=== PATIENT | male | born 1965 | race Caucasian/White ===

== ENCOUNTER 2016-10-12 20:08 | Emergency (ER) | payer MEDICARE ==
[~2016-10-12] VITALS: Ht 175.3 cm; Wt 84.8 kg
[2016-10-12 20:12] VITALS: BP 104/65
== END 2016-10-12 20:53 | disposition home or self-care (01) ==
LOC: ED 20:47
DX: K08.89 Other specified disorders of teeth and supporting structures (principal)
CPT/HCPCS: 99283

== ENCOUNTER 2016-12-07 17:25 | Emergency (ER) | payer MEDICARE ==
[~2016-12-07] VITALS: Ht 175.3 cm; Wt 91.0 kg
[2016-12-07 17:49] VITALS: BP 107/57
== END 2016-12-07 18:18 | disposition home or self-care (01) ==
LOC: ED 18:12
DX: K02.9 Dental caries, unspecified (principal); G89.29 Other chronic pain; M54.9 Dorsalgia, unspecified; Z90.89 Acquired absence of other organs; Z98.890 Other specified postprocedural states
CPT/HCPCS: 99283

== ENCOUNTER 2017-08-17 06:49 | Emergency (ER) | payer MEDICARE, OTHER ==
[~2017-08-17] VITALS: Ht 175.3 cm; Wt 96.9 kg
[2017-08-17 06:50] VITALS: BP 117/75
== END 2017-08-17 08:22 | disposition home or self-care (01) ==
LOC: ED 08:16
DX: K02.9 Dental caries, unspecified (principal); F17.210 Nicotine dependence, cigarettes, uncomplicated; G89.29 Other chronic pain
CPT/HCPCS: 99283

== ENCOUNTER 2018-01-25 11:43 | Emergency (ER) | payer MEDICARE, OTHER ==
[~2018-01-25] VITALS: Ht 175.3 cm; Wt 82.7 kg
[2018-01-25 12:00] VITALS: BP 123/71
[2018-01-25] MEDS ORDERED: DIPH,PERTUSS(ACELL),TET VAC/PF 0.5 ML IM-VACC ONE ×2 (12:30→12:34)
== END 2018-01-25 13:23 | disposition home or self-care (01) ==
LOC: ED 13:17
DX: J20.9 Acute bronchitis, unspecified (principal); L03.011 Cellulitis of right finger; F17.200 Nicotine dependence, unspecified, uncomplicated; Z90.89 Acquired absence of other organs
CPT/HCPCS: 71046; 90471; 90715; 99283

== ENCOUNTER 2018-08-02 21:31 | Emergency (ER) | payer MEDICARE ==
[~2018-08-02] VITALS: Ht 175.3 cm; Wt 85.7 kg
[2018-08-02 21:33] VITALS: BP 129/80
[2018-08-02] MEDS ORDERED: IBUPROFEN 200 MG TABLET PO ONE (22:00)
[2018-08-02] MEDS ORDERED: IBUPROFEN 200 MG TABLET ONE (22:13)
--- NOTE | 2018-08-02 22:17 | NUR ---
medicated per emar for left and right lower mouth dental pain rated at 8/10
== END 2018-08-02 22:37 | disposition home or self-care (01) ==
LOC: ED 22:19
DX: K04.7 Periapical abscess without sinus (principal); K02.9 Dental caries, unspecified
CPT/HCPCS: 99283